=== PATIENT | female | born 2000 | race Caucasian/White ===

== ENCOUNTER 2020-04-20 08:04 | Emergency (ER) | payer OTHER ==
[~2020-04-20] VITALS: Ht 170.2 cm; Wt 78.4 kg
[2020-04-20] MEDS ORDERED: ERYT30GE2 TP (08:32)
--- NOTE | 2020-04-20 08:34 | PHYS DOC ---
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 Has history of styes but reports yesterday evening having inflammation and pain of lower right eyelid. This progressed prompting him to come into our ER for evaluation this morning. Nothing known makes better or worse, patient denies any fever, chills, chest pain, shortness of breath, abdominal pain, urinary symptoms. Patient admits blurred vision, increase clear tear production without drainage. Review of Systems Review of Systems Fourteen body systems of review of systems have been reviewed. See HPI for pertinent positives and negative responses, other aquino all other systems are negative, non-pertinent or non-contributory Allergies Allergies Allergies Coded Allergies Type Severity Reaction Last Updated Verified No Known Drug Allergies 04/20/20 No Physical Exam Physical Exam Constitutional: Well developed, well nourished, no acute distress, non-toxic appearance. HENT: Normocephalic, atraumatic, bilateral external ears normal, oropharynx moist, no oral exudates, nose normal. Eyes: PERRLA, EOMI, conjunctiva normal, no discharge. Patient's inferior eyelid of right eye inflamed with mild ocular irritation and clear tearing Visual acuity left eye 20/15, right eye 20/20, bilateral 20/20 Neck: Normal range of motion, no tenderness, supple, no stridor. Cardiovascular: Heart rate regular, sinus rhythm, no murmurs rubs or gallops Lungs & Thorax: Bilateral breath sounds clear to auscultation Abdomen: Bowel sounds normal, soft, no tenderness, no masses, no pulsatile masses. Nonsurgical abdomen, no peritoneal signs Skin: Warm, dry, no erythema, no rash. Back: No tenderness, no CVA tenderness. Extremities: No tenderness, no cyanosis, no clubbing, ROM intact, no edema. Neurologic: Alert and oriented X 3, grossly normal motor & sensory function, no focal deficits noted. Psychologic: Affect normal, judgement normal, mood normal. EKG EKG [] Radiology/Procedures Radiology/Procedures [] Heart Score HEART Score for Chest Pain: HEART Score for Chest Pain Response (Comments) Value History Slighlty/Non-Suspicious 0 Age < 45 0 Risk Factors No Risk Factors 0 Total 0 Risk Factors: Risk Factors: DM, Current or recent (<one month) smoker, HTN, HLP, family history of CAD, obesity. Risk Scores: Risk Factors: DM, Current or recent (<one month) smoker, HTN, HLP, family history of CAD, obesity. Course & Med Decision Making Course & Med Decision Making I discussed most likely diagnosis of blepharitis. I advised need for supportive care practices and role of ophthalmic erythromycin antibiotic. I stressed need for close outpatient follow-up to review today's ER visit. Strict return precautions were also discussed at length with good understanding by patient. Patient voiced understanding and agreement with the plan. Patient knows to come back for repeat evaluation if concerning signs or symptoms present prior to outpatient follow-up. Hemodynamically stable, ambulatory and well-appearing at time of disposition. Dragon Disclaimer Dragon Disclaimer This electronic medical record was generated, in whole or in part, using a voice recognition dictation system. Departure Departure: Impression: Primary Impression: Blepharitis, right eye Disposition: 01 DC HOME SELF CARE/HOMELESS Condition: STABLE Referrals: PCP,UNKNOWN (PCP) Patient Instructions: Blepharitis Additional Instructions: As instructed prior to ER departure, you were diagnosed with eyelid inflammation and infection otherwise known as blepharitis. This diagnosis is clinical, there was no indication for further ER diagnostic work-up. Lid hygiene is the most important part for blepharitis, avoid eye make-up, utilize warm compresses to your right eye 3-4 times daily for 15 minutes each. Scrub your right eyelid with mild shampoo twice daily. I have prescribed you a topical antibiotic to put directly onto the lid margin. There is no evidence for oral antibiotics or topical steroids. I would advise you to contact your primary care physician today to discuss need for outpatient follow-up with primary care physician and if indicated guitar repairer/graduate assistant as indicated. If any concerning signs or symptoms present prior to outpatient follow-up please do not hesitate to come back for repeat evaluation. It was a pleasure to take care of you and I wish you the best going forward Scripts Erythromycin Base/Ethanol (ERYTHROMYCIN 2% GEL) 30 Gm Gel..gram. 1 SANCHEZ TP BID for BLEPHARITIS for 15 Days, #30 GM 0 Refills Prov: NEW PHAM DO 04/20/20 NEW PHAM DO Apr 20, 2020 08:34
[2020-04-20 08:40] VITALS: BP 130/57
[2020-04-20] MEDS ORDERED: ERYTHROMYCIN 0.5% OPHTH OINTMENT 1GM TUBE. OD ONE (08:45)
== END 2020-04-20 08:40 | disposition home or self-care (01) ==
LOC: ER 08:04
DX: H01.003 Unspecified blepharitis right eye, unspecified eyelid (principal); H53.8 Other visual disturbances
CPT/HCPCS: 99283